=== PATIENT | male | born 1990 | race Caucasian/White ===

== ENCOUNTER 2016-08-26 12:31 | Emergency (ER) | payer SELFPAY ==
[~2016-08-26] VITALS: Ht 177.8 cm; Wt 81.5 kg
[~2016-08-26 12:31] MED LIST: Z.0.NO CURRENT MEDS
[2016-08-26 12:32] VITALS: BP 135/83; PULSE 80; RESP 20; TEMP 97.5; O2SAT 99
--- NOTE | 2016-08-26 12:44 | PD ---
Physical Exam Date Seen by Provider: Aug 26, 2016 Time Seen by Provider: 12:40 Narrative Pt is a 26 year old male presenting to the ED with c/o chest pain and palpitations. The symptoms started 2 nights ago, he was laying in bed on the first night when he felt palpitations then the chest pain started last night. Pt reports feeling SOB when this occurs. Pt states his heart "feels heavy". Pain does not radiate, he rates the pain 4-5/10. Decreased appetite but no recent illnesses. Pt denies any tobacco use or illicit drug use. VSS. Awaiting bed placement. Data Data Last Documented VS Vital Signs Date Time Temp Pulse Resp B/P Pulse Ox O2 Delivery O2 Flow Rate FiO2 08/26/16 12:32 97.5 80 20 135/83 99 Room Air [facility] Supervised Visit with NOEMI: Nanette Mccormick Aug 26, 2016 12:44
--- NOTE | 2016-08-26 13:31 | RADRPT ---
EXAM DATE/TIME: 08/26/2016 13:00 [place] COMPARISON: No previous studies available for comparison. INDICATIONS : Chest pain. MEDICAL HISTORY : None. SURGICAL HISTORY : None. ENCOUNTER: Initial ACUITY: 3 days PAIN SCORE: 4/10 LOCATION: Bilateral chest FINDINGS: PA and lateral views of the chest demonstrate the lungs to be symmetrically aerated without evidence of mass, infiltrate or effusion. The cardiomediastinal contours are unremarkable. Osseous structure s are intact. CONCLUSION: No acute cardiopulmonary disease. Norberto Shafer MD on August 26, 2016 at 13:29 Board Certified Radiologist. This report was verified electronically.
[2016-08-26 14:46] VITALS: BP 155/83; PULSE 81; RESP 16; O2SAT 98
--- NOTE | 2016-08-26 15:01 | PD ---
HPI Chief Complaint: Chest Pain Time Seen by Provider: 14:59 Travel History International Travel<30 days: No Contact w/Intl Traveler<30days: No Traveled to known affect area: No History of Present Illness HPI 26-year-old male presents to the emergency department for evaluation of anxiety , chest pain. Patient states he does have history of anxiety. Patient states that this morning for approximately one hour, he had some bilateral chest pain. He denies any radiation of the pain. He states the pain lasted for approximately an hour and resolved on its own. Patient states that he has felt associated shortness of breath. He states this is consistent with previous anxiety. He has no chronic medical problems and takes no medications. He does report history of symptoms tooth removal approximately 2 weeks ago. Patient has no medical problems and takes no medications. He states that his girlfriend gave him one of her Xanax last night which did improve his symptoms. He has no cardiac history. He denies any family cardiac history of sudden before the age of 40. He denies any IV drug use. Patient states symptoms are resolved at this time. PFSH Past Medical History Diabetes: No Neurologic: No Seizures: Yes (8-10 YEARS AGO) Influenza Vaccination: No Past Surgical History Surgical History: No Previous Surgery Social History Alcohol Use: No Tobacco Use: No Substance Use: No Allergies-Medications (Allergen,Severity, Reaction): Coded Allergies: No Known Allergies (Verified , 08/26/16) Reported Meds & Prescriptions Reported Meds & Active Scripts Active Vistaril (Hydroxyzine Pamoate) 50 Mg Cap 50 Mg PO TID PRN Review of Systems Except as stated in HPI: all other systems reviewed are Neg Physical Exam Narrative GENERAL: Well-nourished, well-developed male patient, ambulatory. Afebrile. SKIN: Focused skin assessment warm/dry. HEAD: Normocephalic. Atraumatic. EYES: No scleral icterus. No injection or drainage. NECK: Supple, trachea midline. No JVD or lymphadenopathy. CARDIOVASCULAR: Regular rate and rhythm without murmurs, gallops, or rubs. RESPIRATORY: Breath sounds equal bilaterally. No accessory muscle use. Lungs sounds are clear to auscultation. GASTROINTESTINAL: Abdomen soft, non-tender, nondistended. MUSCULOSKELETAL: No cyanosis, or edema. BACK: Nontender without obvious deformity. No CVA tenderness. Data Data Last Documented VS Vital Signs Date Time Temp Pulse Resp B/P Pulse Ox O2 Delivery O2 Flow Rate FiO2 08/26/16 14:46 81 16 155/83 98 Room Air 08/26/16 12:32 97.5 Orders Electrocardiogram (08/26/16 12:44) Basic Metabolic Panel (Bmp) (08/26/16 12:44) Ckmb (Isoenzyme) Profile (08/26/16 12:44) Complete Blood Count With Diff (08/26/16 12:44) Magnesium (Mg) (08/26/16 12:44) Prothrombin Time / Inr (Pt) (08/26/16 12:44) Act Partial Throm Time (Ptt) (08/26/16 12:44) Troponin I (08/26/16 12:44) Chest, Pa & Lat (08/26/16 12:44) Thyroid Stimulating Hormone (08/26/16 12:44) Hydroxyzine Pamoate (Vistaril) (08/26/16 15:15) Iv Access Insert/Monitor (08/26/16 15:01) CKMB (08/26/16 15:10) CKMB% (08/26/16 15:10) Labs Laboratory Tests Test 08/26/16 15:10 White Blood Count 13.0 TH/MM3 Red Blood Count 5.55 MIL/MM3 Hemoglobin 15.3 GM/DL Hematocrit 45.8 % Mean Corpuscular Volume 82.5 FL Mean Corpuscular Hemoglobin 27.5 PG Mean Corpuscular Hemoglobin 33.4 % Concent Red Cell Distribution Width 13.3 % Platelet Count 279 TH/MM3 Mean Platelet Volume 8.3 FL Neutrophils (%) (Auto) 83.3 % Lymphocytes (%) (Auto) 12.6 % Monocytes (%) (Auto) 3.6 % Eosinophils (%) (Auto) 0.4 % Basophils (%) (Auto) 0.1 % Neutrophils # (Auto) 10.8 TH/MM3 Lymphocytes # (Auto) 1.6 TH/MM3 Monocytes # (Auto) 0.5 TH/MM3 Eosinophils # (Auto) 0.1 TH/MM3 Basophils # (Auto) 0.0 TH/MM3 CBC Comment DIFF FINAL Differential Comment Prothrombin Time 11.4 SEC Prothromb Time International 1.0 RATIO Ratio Activated Partial 25.8 SEC Thromboplast Time Sodium Level 139 MEQ/L Potassium Level 3.8 MEQ/L Chloride Level 107 MEQ/L Carbon Dioxide Level 26.3 MEQ/L Anion Gap 6 MEQ/L Blood Urea Nitrogen 10 MG/DL Creatinine 0.88 MG/DL Estimat Glomerular Filtration 106 ML/MIN Rate Random Glucose 134 MG/DL Calcium Level 9.5 MG/DL Magnesium Level 2.1 MG/DL Total Creatine Kinase 104 U/L Creatine Kinase MB 0.6 NG/ML Troponin I LESS THAN 0.02 NG/ML Thyroid Stimulating Hormone 0.655 uIU/ML [address] [place] [address] Medical Decision Making Medical Screen Exam Complete: Yes Emergency Medical Condition: Yes Medical Record Reviewed: Yes Interpretation(s) Last Impressions Chest X-Ray 08/26/16 1244 Signed Impressions: Service Date/Time: Wednesday, August 26, 2016 13:00 - CONCLUSION: No acute cardiopulmonary disease. Norberto Shafer MD Differential Diagnosis Anxiety versus chest wall pain versus electrolyte abnormality versus unlikely ACS Narrative Course 26-year-old male presents to the emergency department for evaluation of bilateral chest pain with associated shortness of breath and lasted for approximately one hour. He has no symptoms at this time. He states he does have history of anxiety and this is consistent with previous anxiety. He has no medical problems and takes no medications. Symptoms and physical are not consistent with PE. Symptoms are consistent with anxiety. IV access established. CBC, BMP, CK, troponin, magnesium, PTT, PTT/INR, TSH are ordered and pending. Chest x-ray is ordered and pending. Patient is given Vistaril 50 mg by mouth. EKG shows sinus rhythm, heart rate 66, no acute ST changes. CBC shows leukocytosis 13.0. BMP shows no acute abnormality. CK is 104. Troponin is less than 0.02. Magnesium is 2.1. TSH is 0.655. Coags are unremarkable. Chest x-ray shows no acute cardiopulmonary disease. Patient appears well on physical exam. Symptoms and physical are consistent with anxiety. My attending physician, Dr. Almaguer, is aware of physical exam findings, laboratory findings, and imaging results. He agrees on plan and disposition. Patient is to return for any acute, worsening of symptoms. Diagnosis Primary Impression: Anxiety Referrals: Primary Care Physician call for appointment Patient Instructions: Anxiety (ED), General Instructions Additional Instructions: Take Vistaril as instructed as needed for anxiety. Follow-up with your primary care physician. Return to the emergency department for any acute worsening of symptoms. Med/Other Pt SpecificInfo: Prescription(s) given Scripts Hydroxyzine Pamoate (Vistaril)50 Mg Cap50 Mg PO TID PRN (ANXIETY) #21 CAP Ref 0 Prov:Chraisse Camarena 08/26/16 Disposition: 01 DISCHARGE HOME Condition: Stable Charisse Camarena Aug 26, 2016 15:01 Charisse Camarena Aug 26, 2016 15:01
[2016-08-26 15:21] LABS: AUTOMATED NEUTROPHIL # 10.8 TH/MM3 (1.8-7.7); BASOPHIL % 0.1 % (0.0-2.0); EOSINOPHIL # 0.1 TH/MM3 (0-0.4); EOSINOPHIL % 0.4 % (0.0-4.0); HEMATOCRIT 45.8 % (39.0-51.0); HEMO FLAGS DIFF FINAL; LYMPH % 12.6 % (9.0-44.0); LYMPHOCYTE # 1.6 TH/MM3 (1.0-4.8); MEAN CELL VOLUME 82.5 FL (80.0-100.0); MEAN CORPUSCULAR HEMOGLOBIN 27.5 PG (27.0-34.0); MEAN CORPUSCULAR HGB CONC 33.4 % (32.0-36.0); MONO % 3.6 % (0.0-8.0); NEUT % 83.3 % (16.0-70.0); PLATELET COUNT 279 TH/MM3 (150-450); RED BLOOD COUNT 5.55 MIL/MM3 (4.50-5.90); RED CELL DISTRIBUTION WIDTH 13.3 % (11.6-17.2)
[2016-08-26 15:33] LABS: APTT (PATIENT) 25.8 SEC (24.3-30.1); PROTHROMBIN TIME - PATIENT 11.4 SEC (9.8-11.6)
[2016-08-26 15:39] LABS: ANION GAP 6 MEQ/L (5-15); BICARBONATE 26.3 MEQ/L (21.0-32.0); BLOOD UREA NITROGEN 10 MG/DL (7-18); CHLORIDE 107 MEQ/L (98-107); GLOMERULAR FILTRATION RATE 106 ML/MIN (>89); MAGNESIUM 2.1 MG/DL (1.5-2.5); POTASSIUM 3.8 MEQ/L (3.5-5.1); SODIUM (NA) 139 MEQ/L (136-145)
[2016-08-26 15:49] LABS: CREATINE KINASE 104 U/L (39-308)
[2016-08-26 16:01] LABS: CKMB 0.6 NG/ML (0.5-3.6)
[2016-08-26] MEDS ORDERED: VIST50CA PO (16:37)
--- NOTE | 2016-08-27 13:54 | EKG ---
Date Performed: 08/26/2016 Time Performed: 13:17:28 PTAGE: 26 years EKG: Sinus rhythm NORMAL ECG Compared to prior tracing no significant change PREVIOUS TRACING DOCTOR: Jacobo Barraza Interpretating Date/Time 08/27/2016 13:51:17
== END 2016-08-26 17:45 | disposition home or self-care (01) ==
LOC: NEPD 12:31
DX: F41.9 Anxiety disorder, unspecified (principal)
CPT/HCPCS: 71020; 80048; 82550; 82552; 83735; 84443; 84484; 85025; 85610; 85730; 93005